=== PATIENT | male | born 1990 | race Caucasian/White ===

== ENCOUNTER 2016-10-31 15:51 | Emergency (ER) | payer OTHER ==
[~2016-10-31] VITALS: Ht 170.2 cm; Wt 42.6 kg
--- NOTE | 2016-10-31 16:04 | NUR ---
pt to ed room 03. R U Q ABD PAIN SHARP, RADIATING TO R L Q X 3 DAYS. a/a/o. ambulatory with steady gait. side rails up. hob elevated. connected to monitor. seen and evaluated by ed provider.
--- NOTE | 2016-10-31 16:06 | NUR ---
URINE SAMPLE COLLECTED SENT TO LAB
--- NOTE | 2016-10-31 16:08 | NUR ---
LAB AT BEDSIDE BLOOD SAMPLE COLLECTED SENT TO LAB
[2016-10-31 16:15] LABS: APPEARANCE,URINE Clear (CLEAR); BILIRUBIN,URINE Negative (NEGATIVE); BLOOD, URINE Trace-intact Ery/uL (NEGATIVE); COLOR,URINE Yellow (YELLOW); KETONES,URINE Negative (NEGATIVE); LEUKOCYTE ESTERASE ,URINE Negative (NEGATIVE); NITRITE, URINE Negative (NEGATIVE); PROTEIN,URINE Negative (NEGATIVE); UGLUCOSE Negative (NEGATIVE); UROBILINOGEN,URINE 0.2 EU/dL (0.2)
[2016-10-31 16:16] LABS: BASOPHILS # (AUTO) 0.1 /CMM (0.0-0.2); BASOPHILS % (AUTO) 0.7 % (0.0-2.0); EOSINOPHILS # (AUTO) 0.2 /CMM (0.0-0.7); EOSINOPHILS % (AUTO) 2.6 % (0.0-6.0); HEMATOCRIT 50 % (39-51); HEMOGLOBIN 16.5 g/dL (13.5-17.5); LYMPHOCYTES % (AUTO) 24.1 % (20.0-44.0); MEAN CORPUSCULAR HEMOGLOBIN 31 PG (26.0-33.0); MEAN CORPUSCULAR HGB CONC 33 g/dl (31.0-36.0); MEAN CORPUSCULAR VOLUME 93 fL (80-96); MONOCYTES # (AUTO) 0.8 /CMM (0.1-1.30); NEUTROPHILS # (AUTO) 5.3 /CMM (1.8-8.9); NEUTROPHILS % (AUTO) 63.6 % (43.0-81.0); PLATELET COUNT (AUTO) 234 /CMM (150-450); RDW COEFFICIENT OF VARIATION 12.4 (11.5-15.0); RED BLOOD CELL COUNT(AUTO) 5.41 MIL/uL (4.5-6.0); WHITE BLOOD COUNT (AUTO) 8.4 K/uL (4.3-11.0)
[2016-10-31 16:18] LABS: ADD URINE CULTURE NO; BACTERIA,URINE Rare /HPF (None Seen); RBC,URINE 0-2 /HPF (0-2); SQUAMOUS EPITHELIAL CELL,UR Rare /HPF (None Seen); WBC,URINE 0-2 /HPF (0-3)
[2016-10-31 16:22] LABS: CALCIUM, SERUM 8.9 mg/dL (8.5-10.1); CARBON DIOXIDE 29 mmol/L (21-32); CHLORIDE 103 mmol/L (98-107); CREATININE 0.9 mg/dL (0.6-1.3); GFR 104 mL/min (>60); GLUCOSE 104 mg/dL (74-106); POTASSIUM 3.6 mmol/L (3.5-5.1); SODIUM SERUM 140 mmol/L (136-145); UREA NITROGEN, BLOOD 14 mg/dL (7-18)
[2016-10-31 16:30] LABS: TROPONIN I < 0.017 ng/mL (0.00-0.056)
[2016-10-31 16:34] LABS: ALANINE AMINOTRANSFERASE 25 U/L (12-78); ALBUMIN 3.8 g/dL (3.4-5.0); ALKALINE PHOSPHATASE 86 U/L (46-116); ASPARTATE AMINOTRANSFERASE 18 U/L (15-37); BILIRUBIN,DIRECT 0.1 mg/dL (0.0-0.2); BILIRUBIN,TOTAL 0.7 mg/dL (0.2-1.0); LIPASE 90 U/L (73-393); TOTAL PROTEIN, SERUM 7.5 g/dL (6.4-8.2)
[2016-10-31] MEDS ORDERED: HYDROCODONE/APAP 5/325MG 1 EACH TABLET ONE (16:38)
[2016-10-31] MEDS ORDERED: HYDROCODONE/APAP 5/325MG 1 EACH TABLET PO ONE (17:00)
--- NOTE | 2016-10-31 17:08 | NUR ---
REMOTE RECRUITER AT BEDSIDE
--- NOTE | 2016-10-31 17:08 | NUR ---
US AT BEDSIDE
--- NOTE | 2016-10-31 17:44 | NUR ---
Patient discharged to home in stable condition. Written and verbal after care instructions given. Patient verbalizes understanding of instruction.
[2016-10-31 17:45] VITALS: BP 149/75
== END 2016-10-31 17:46 | disposition home or self-care (01) ==
LOC: ER 15:53
DX: R10.11 Right upper quadrant pain (principal)
CPT/HCPCS: 36415; 76705-TC; 80048-TC; 80076-TC; 81000-TC; 83690-TC; 84484-TC; 85025-TC; A4606; Z7610

== ENCOUNTER 2016-11-01 11:16 | Emergency (ER) | payer OTHER ==
[~2016-11-01] VITALS: Ht 167.6 cm; Wt 88.0 kg
--- NOTE | 2016-11-01 11:30 | NUR ---
PT BIB SELF C/O R TESTICLE PAIN THIS MORNING. PT REPORTS IT HURTS ON AMBULATION. NAD NOTED. REPORTS TRAUMA TO THE TESTICLES LAST WEEK WHILE PLAYING BASKETBALL. NO DYSURIA/HEMATURIA. IN ER BED 21.
--- NOTE | 2016-11-01 11:43 | NUR ---
CALLED RADIOLOGY TO INFORM THEM OF TESTICULAR ULTRASOUND
[2016-11-01] MEDS ORDERED: IBUPROFEN 600 MG TABLET PO ONE (12:00)
[2016-11-01] MEDS ORDERED: IBUPROFEN 200 MG TABLET ONE (12:00)
--- NOTE | 2016-11-01 12:00 | NUR ---
US TECH AT BEDSIDE
[2016-11-01 12:25] LABS: APPEARANCE,URINE Clear (CLEAR); BILIRUBIN,URINE Negative (NEGATIVE); BLOOD, URINE Trace-intact Ery/uL (NEGATIVE); COLOR,URINE Yellow (YELLOW); KETONES,URINE Negative (NEGATIVE); LEUKOCYTE ESTERASE ,URINE Negative (NEGATIVE); NITRITE, URINE Negative (NEGATIVE); PROTEIN,URINE Negative (NEGATIVE); UGLUCOSE Negative (NEGATIVE); UROBILINOGEN,URINE 0.2 EU/dL (0.2)
[2016-11-01 12:38] LABS: ADD URINE CULTURE NO; BACTERIA,URINE Rare /HPF (None Seen); RBC,URINE 0-2 /HPF (0-2); SQUAMOUS EPITHELIAL CELL,UR Rare /HPF (None Seen); WBC,URINE 0-2 /HPF (0-3)
--- NOTE | 2016-11-01 13:23 | NUR ---
Patient discharged to home in stable condition. Written and verbal after care instructions given. Patient verbalizes understanding of instruction. AMBULATORY WITH STEADY GAIT.
[2016-11-01 13:26] VITALS: BP 148/68
== END 2016-11-01 13:26 | disposition home or self-care (01) ==
LOC: ER 11:19
DX: N50.811 Right testicular pain (principal)
CPT/HCPCS: 76870; 81001; 87086; 99285; A4606; Z7610; 81000-TC